=== PATIENT | female | born 1965 | race Caucasian/White ===

== ENCOUNTER 2016-12-05 16:21 | Emergency (ER) | payer OTHER ==
[2016-12-05] MEDS ORDERED: DIAZEPAM 5 MG TAB PO ONE (18:00)
[2016-12-05] MEDS ORDERED: DEXAMETHASONE 4 MG/ML VIAL IVP ONE (18:00)
[2016-12-05] MEDS ORDERED: KETOROLAC 15 MG/1 ML SDV IVP ONE (18:00)
[2016-12-05] MEDS ORDERED: DIAZEPAM 10 MG/2 ML SYR IVP ONE ×2 (18:02→19:42)
--- NOTE | 2016-12-05 18:04 | EDPHY ---
H & P Stated Complaint: Slipped on step last Saturday;pain L butt/hip not relieved w/ norco Source: Patient Exam Limitations: No limitations - Personal History LMP (Females 10-55): Now Current Tetanus Diphtheria and Acellular Pertussis (TDAP): Yes - Medical/Surgical History Hx Asthma: No Hx Chronic Respiratory Disease: No Hx Diabetes: No Hx Cardiac Disease: No Hx Renal Disease: No Hx Cirrhosis: No Hx Alcoholism: No Hx HIV/AIDS: No Other PMH: L4 to S1 chronic pain, chronic cervical pain - Family History Significant Family History: No pertinent family hx - Social History Smoking Status: Never smoked Alcohol Use: Sober Drug Use: None Time Seen by Provider: 12/05/16 17:48 HPI/ROS: CHIEF COMPLAINT: Back pain HISTORY OF PRESENT ILLNESS: Patient is a 51-year-old female with a history of chronic lumbar and cervical spine pain. She was walking down the steps 3 days ago and slipped on the last step and landed on her left hip. She has had pain in her left SI joint region since that time. She is unable to get out of bed on Saturday. Today she was able to go to the grocery store and walk but had severe pain. This afternoon she had an episode of incontinence which concerned her. She has a history of degenerative disc disease and receives some type of lumbar injection in [place]. She denies weakness or numbness but has severe pain if she lifts her leg or bears weight on the left. She also complains of pain in her hip and left knee. She states that her left knee pops when she bends it. No arm pain. No new neck pain. She did take a Roscoe and a Valium last night with only minimal improvement. She states that her incontinence was a large amount the urine down both legs. She has never had this before. REVIEW OF SYSTEMS: Constitutional: denies: chills, fever, recent illness, recent injury EENTM: denies: blurred vision, double vision, nose congestion Respiratory: denies: cough, shortness of breath Cardiac: denies: chest pain, irregular heart rate, lightheadedness, palpitations Gastrointestinal/Abdominal: denies: abdominal pain, diarrhea, nausea, vomiting, blood streaked stools Genitourinary: denies: dysuria, frequency, hematuria, pain Musculoskeletal: See HPI Skin: denies: lesions, rash, jaundice, bruising Neurological: denies: headache, numbness, paresthesia, tingling, dizziness, weakness Hematologic/Lymphatic: denies: blood clots, easy bleeding, easy bruising Immunologic/allergic: denies: HIV/AIDS, transplant EXAM: GENERAL: Well-appearing, well-nourished and in no acute distress. HEAD: Atraumatic, normocephalic. EYES: Pupils equal round and reactive to light, extraocular movements intact, sclera anicteric, conjunctiva are normal. ENT: TMs normal, nares patent, oropharynx clear without exudates. Moist mucous membranes. NECK: Normal range of motion, supple without lymphadenopathy or JVD. LUNGS: Breath sounds clear to auscultation bilaterally and equal. No wheezes rales or rhonchi. HEART: Regular rate and rhythm without murmurs, rubs or gallops. ABDOMEN: Soft, nontender, normoactive bowel sounds. No guarding, no rebound. No masses appreciated. BACK: No CVA tenderness, no spinal tenderness, step-offs or deformities EXTREMITIES: Left low back pain and pain at the SI joint radiating down like. No obvious deformity. Tenderness over SI joint. No deformity to knee. Pain with weight-bearing. Normal sensation and strength in the gurney. Normal reflexes. NEUROLOGICAL: Cranial nerves II through XII grossly intact. Normal speech. 5/ 5 strength, normal movement in all extremities, normal sensation PSYCH: Normal mood, normal affect. SKIN: Warm, dry, normal turgor, no visible rashes or lesions. (Maikel Colbert) Constitutional: Initial Vital Signs Temperature (C) 36.7 C 12/05/16 16:31 Heart Rate 91 12/05/16 16:31 Respiratory Rate 18 12/05/16 16:31 Blood Pressure 173/110 H 12/05/16 16:31 O2 Sat (%) 97 12/05/16 16:31 O2 Delivery Mode Room Air Allergies/Adverse Reactions: hydromorphone [From Dilaudid] Allergy (Intermediate, Verified 12/05/16 16:35) violent vomiting/rash metronidazole [From Flagyl] Allergy (Mild, Verified 12/05/16 16:35) rash/itching Home Medications: Medication Instructions Recorded Diazepam [Valium 5 MG (*)] 5 mg PO 12/05/16 Diazepam [Valium 5 MG (*)] 5 mg PO TID PRN #15 tab 12/05/16 Hydrocodone/APAP 5/325 [Roscoe 1 each PO 12/05/16 5/325 (*)] Hydrocodone/APAP 5/325 [Roscoe 1 - 2 tab PO Q4H PRN #10 tab 12/05/16 5/325] Medical Decision Making ED Course/Re-evaluation: 2211: Patient's MRI of the lumbar spine called to me by Dr. Richard Caruso. Does show multilevel degenerative disc disease however no cord compression or no signs of acute cauda equina syndrome. 7; I did update this patient on her MRI results. She is reassured by this. She is specifically asking for Roscoe 10 mg and Valium 5 mg for home. Will give her very limited supply for this. She understands follow-up with her neurosurgeon primary care doctor. Additionally understands return emergency room if she has worsening symptoms includes leg weakness, saddle anesthesia, bowel or bladder incontinence. Her neurological exam here is unremarkable this time. (Drake Callaway) 9:40 p.m. the patient's pain is currently controlled. She is awaiting MRI. Her plain films are negative. She has normal movement in her leg. Care transferred to Dr. Drake Callaway at shift change. (Maikel Colbert) Differential Diagnosis: Partial list of the Differential diagnosis considered include but were not limited to; degenerative disc disease, radiculopathy, medication dependence, cauda equina, fracture and although unlikely based on the history and physical exam, I also considered infection, dislocation. (Maikel Colbert) - Data Points Laboratory Results: Laboratory Results 12/05/16 18:30 12/05/16 18:30 Medications Given: Discontinued Medications Dexamethasone (Decadron Injection) 8 mg IVP EDNOW ONE Stop: 12/05/16 18:01 Last Admin: 12/05/16 18:22 Dose: 8 mg Diazepam (Valium) 5 mg PO EDNOW ONE Stop: 12/05/16 18:01 Last Admin: 12/05/16 18:09 Dose: Not Given Diazepam (Valium Injection) 5 mg IVP EDNOW ONE Stop: 12/05/16 18:03 Last Admin: 12/05/16 18:23 Dose: 5 mg Diazepam (Valium Injection) 5 mg IVP EDNOW ONE Stop: 12/05/16 19:43 Last Admin: 12/05/16 19:43 Dose: 5 mg Ketamine HCl (Ketamine) 15.4 mg 0.2 mg/kg (15.4 mg) IVP EDNOW ONE Stop: 12/05/16 19:02 Last Admin: 12/05/16 19:28 Dose: 15.4 mg Ketorolac Tromethamine (Toradol) 15 mg IVP EDNOW ONE Stop: 12/05/16 18:01 Last Admin: 12/05/16 18:22 Dose: 15 mg Departure - Departure Disposition: Home, Routine, Self-Care Clinical Impression: Back pain Qualifiers: Back pain location: low back pain Chronicity: acute Back pain laterality: left Sciatica presence: with sciatica Sciatica laterality: sciatica of left side Qualified Code(s): M54.42 - Lumbago with sciatica, left side Condition: Good Instructions: Low Back Strain (ED) Additional Instructions: 1. Ice your back. 2. Take it easy. 3. Return to the emergency room if you have worsening symptoms questions or concerns. Referrals: [facility] [Other] - As per Instructions Prescriptions: Diazepam [Valium 5 MG (*)] 5 mg PO TID PRN #15 tab PRN Reason: Spasms Hydrocodone/APAP 5/325 [Roscoe 5/325] 1 - 2 tab PO Q4H PRN #10 tab PRN Reason: Pain, Moderate
[2016-12-05 18:37] LABS: % IMMATURE GRANULYOCYTES 0.3 % (0.0-1.1); ABSOLUTE IMMATURE GRANULOCYTES 0.02 10^3/uL (0.00-0.10); ADD DIFF? NO; ADD MORPH? NO; ADD SCAN? NO; ATYPICAL LYMPHOCYTE FLAG 10 (0-99); FRAGMENT RBC FLAG 0 (0-99); HEMATOCRIT 47.1 % (38.0-47.0); HEMOGLOBIN 16.7 g/dL (12.6-16.3); LEFT SHIFT FLG 0 (0-99); LIPEMIA HEMOLYSIS FLAG 90 (0-99); MEAN CELL HEMOGLOBIN 35.5 pg (27.9-34.1); MEAN CELL HEMOGLOBIN CONCENTR. 35.5 g/dL (32.4-36.7); MEAN CELL VOLUME 100.2 fL (81.5-99.8); MEAN PLATELET VOLUME 9.6 fL (8.7-11.7); PLATELET CLUMPS FLAG 30 (0-99); PLATELET COUNT 271 10^3/uL (150-400); RED CELL DISTRIBUTION WIDTH 13.1 % (11.5-15.2)
[2016-12-05 18:59] LABS: ANION GAP 16 mEq/L (8-16); CALCIUM 10.3 mg/dL (8.5-10.4); CARBON DIOXIDE 21 mEq/l (22-31); CHLORIDE 102 mEq/L (97-110); CREATININE 0.8 mg/dL (0.6-1.0); GLOMERULAR FILTRATION RATE > 60; GLUCOSE 82 mg/dL (70-100); POTASSIUM 3.9 mEq/L (3.5-5.2); SODIUM 139 mEq/L (134-144)
[2016-12-05] MEDS ORDERED: KETAMINE 100 MG/10 ML SYR IVP ONE (19:01)
[2016-12-05 19:25] LABS: INR 1.09 (0.83-1.16)
[2016-12-05 19:26] LABS: APTT 30.9 SEC (23.0-38.0)
[2016-12-05 19:29] LABS: COLOR LT. YELLOW
[2016-12-05 19:30] LABS: BACTERIA TRACE /hpf (NONE SEEN); MUCUS 1+ /lpf (NONE-1+); RBC,URINE NONE SEEN /hpf (0-3)
[2016-12-05 22:11] VITALS: BP 133/100; RESP 16
[2016-12-05 22:44] VITALS: PULSE 70; TEMP 97.7; O2SAT 94
== END 2016-12-05 22:43 | disposition home or self-care (01) ==
DX: M54.42 Lumbago with sciatica, left side (principal)
CPT/HCPCS: 96374; J1100; J1885